=== PATIENT | male | born 1975 | race African-American/Black ===

== ENCOUNTER 2017-09-28 06:16 | Day surgery (SDC) | payer MEDICAID ==
[~2017-09-28] VITALS: Ht 167.6 cm; Wt 62.6 kg
[2017-09-28] MEDS ORDERED: LACTATED RINGERS 1,000 ML IV ONE (07:30)
[2017-09-28] MEDS ORDERED: HYDRALAZINE 20MG/ML VIAL IV NR (07:35)
[2017-09-28] MEDS ORDERED: METOCLOPRAMIDE HCL 10MG/2ML VIAL IV NR (07:35)
[2017-09-28] MEDS ORDERED: LABETALOL 5MG/ML SYR 20 MG/4 ML SYRINGE IV ONE (08:30)
[2017-09-28 08:52] VITALS: BP 199/121
[2017-09-28] MEDS ORDERED: NORMAL SALINE 0.9% 10 ML SYR ONE (09:25)
[2017-09-28] MEDS ORDERED: BACITRACIN 50,000 UNITS/VIAL ONE (09:25)
[2017-09-28] MEDS ORDERED: BUPIVACAINE HCL/PF 0.25% (2.5MG/ML) 10ML ONE (09:25)
[2017-09-28] MEDS ORDERED: FENTANYL CITRATE/PF 50MCG/ML 2ML VIAL ONE (09:26)
[2017-09-28] MEDS ORDERED: MIDAZOLAM HCL 2 MG/2 ML VIAL ONE (09:26)
[2017-09-28] MEDS ORDERED: CEFAZOLIN SODIUM 1000MG/VIAL ONE (09:27)
[2017-09-28] MEDS ORDERED: PROPOFOL 200MG/20ML VIAL IV ONE (09:27)
[2017-09-28] MEDS ORDERED: LIDOCAINE HCL/PF 1% 10 MG/ML 5ML VIAL ONE (09:27)
[2017-09-28] MEDS ORDERED: STERILE WATER FOR INJECTION 10ML VIAL ONE (09:31)
[2017-09-28] MEDS ORDERED: ONDANSETRON HCL 4MG/2ML VIAL ONE (09:33)
[2017-09-28] MEDS ORDERED: MORPHINE SULFATE 4 MG/ML CPJ (NOT FOR IM USE) IV PRN (10:00)
[2017-09-28] MEDS ORDERED: BACITRACIN ZINC 15GM TUBE TOP ONE (10:25)
[2017-09-28] MEDS ORDERED: NITR100C PO (11:21)
[2017-09-28] MEDS ORDERED: AMLO10TA80 PO (11:21)
== END 2017-09-28 11:45 | disposition home or self-care (01) ==
LOC: OR 06:16
PROVIDERS: ATTEND Urology
DX: L72.0 Epidermal cyst (principal); L92.8 Other granulomatous disorders of the skin and subcutaneous tissue; I10 Essential (primary) hypertension; Z79.899 Other long term (current) drug therapy; F10.10 Alcohol abuse, uncomplicated; F17.210 Nicotine dependence, cigarettes, uncomplicated
CPT/HCPCS: 11422; 88304; A4216; J0360; J0690; J2250; J2405; J2765; J3010; J3490; J7120; J2704